=== PATIENT | male | born 1960 | race Two or more races ===

== ENCOUNTER 2020-08-17 17:19 | Emergency (ER) | payer SELFPAY ==
[~2020-08-17] VITALS: Ht 177.8 cm; Wt 94.1 kg
[2020-08-17] MEDS ORDERED: OXYMETAZOLINE NASAL SPRAY 0.05%,30ML ONE (17:45)
[2020-08-17] MEDS ORDERED: OXYMETAZOLINE NASAL SPRAY 0.05%, 15ML NAS ONE (18:00)
--- NOTE | 2020-08-17 18:50 | NUR ---
REPORT FROM [place]
[2020-08-17 19:01] LABS: BASOPHILS % (AUTO) 1 % (0-1); EOSINOPHILS % (AUTO) 4 % (1-7); LYMPHOCYTES % (AUTO) 35 % (22-44); MEAN CORPUSCULAR HGB CONC 34.8 g/dL (33.2-36.2); MEAN PLATELET VOLUME 8.6 fL (7.4-10.4); MONOCYTES % (AUTO) 13 % (2-9); NEUTROPHILS % (AUTO) 48 % (42-75); PLATELET COUNT 223 x10^3/uL (130-400); RED BLOOD COUNT 4.41 x10^6/uL (4.38-5.82); RED CELL DISTRIBUTION WIDTH 14.1 % (9.4-14.8)
[2020-08-17 19:05] LABS: MD NO
[2020-08-17 19:12] LABS: ANION GAP 6 mmol/L (5-15); CALCIUM 9.3 mg/dL (8.5-10.1); CHLORIDE 108 mmol/L (98-107); CREATININE 1.26 mg/dL (0.7-1.3)
[2020-08-17 19:14] LABS: INTERNATIONAL NORMALIZED RATIO 1.1 (0.93-1.1); PROTHROMBIN TIME 11.8 Seconds (9.6-11.5)
[2020-08-17 20:20] VITALS: BP 149/101
== END 2020-08-17 20:22 | disposition home or self-care (01) ==
LOC: ED 19:48
DX: R04.0 Epistaxis (principal); Z87.891 Personal history of nicotine dependence
CPT/HCPCS: 30905; 36415; 80048; 85025; 85610; 85730; 99284